=== PATIENT | male | born 1990 | race Caucasian/White ===

== ENCOUNTER 2017-10-22 21:17 | Inpatient (IN) | payer MEDICAID, OTHER ==
[~2017-10-22] VITALS: Ht 177.8 cm; Wt 107.4 kg
[2017-10-22] MEDS ORDERED: SODIUM CHLORIDE 0.9% FLUSH 10 ML FLUSH IV FLUSH PRN (23:00)
[2017-10-22] MEDS ORDERED: NALOXONE HCL 0.4 MG/ML AMP IV PUSH PRN (23:00)
[2017-10-23 02:10] VITALS: BP 129/66; PULSE 60; RESP 17; TEMP 96.1; O2SAT 96
[2017-10-23] MEDS ORDERED: PROCHLORPERAZINE INJ 10 MG/2 ML VIAL IV PUSH PRN (02:15)
[2017-10-23] MEDS: ONDANSETRON HCL 4 MG/2 ML VIAL IVP PRN (02:27)
[2017-10-23] MEDS: HYDROmorphone HCL PF 2 MG/ML VIAL IV PRN ×5 (02:55→23:38)
--- NOTE | 2017-10-23 03:02 | HHI.HP ---
[facility] Unknown Admission Diagnosis Ileocolic Intussusception with partial SBO . Diagnoses: (1) Ileocolic intussusception (2) Partial small bowel obstruction Chief Complaint: Abdominal pain Travel History International Travel<30 Days: No Contact w/Intl Traveler <30 Da: No History of Present Illness Mr. Crawley is a 27 year-old male with a history of pancreatitis who presented to the ER on 10/22/17 in [place] complaining of severe abdominal pain. Abdominal/Pelvic CT scan showed ileocolic intussusception with partial SBO. The patient was transferred to [facility] for surgical intervention. The patient is seen in his hospital room. He reports that his symptoms first started after breakfast this morning with intermittent abdominal pain - left upper quadrant - and the symptoms progressed throughout the day until they became severe and constant and were accompanied by severe nausea and vomiting. Pain temporarily relieved with IV Dilaudid. Review of Systems Except as stated in HPI: all other systems reviewed are Neg Past Family Social History Past Medical History Pancreatitis . Past Surgical History Right hand surgery . Reported Medications Reported Meds & Active Scripts Active Active Prescriptions or Reported Medications Unobtainable . Allergies: Coded Allergies: pseudoephedrine (Verified Allergy, Severe, Rash, 10/22/17) Active Ordered Medications Current Medications Ondansetron HCl (Zofran Inj) 4 mg Q6H PRN IVP NAUSEA OR VOMITING Last administered on 10/23/17at 02:27; Start 10/22/17 at 23:00 Hydromorphone HCl (Dilaudid Pf Inj) 1 mg Q3H PRN IV PAIN > 4 Last administered on 10/23/17at 02:55; Start 10/23/17 at 02:45 Potassium Chloride/Sodium Chloride 1,000 ml @ 125 mls/hr Q8H IV ; Start at 02:15 Prochlorperazine Edisylate (Compazine Inj) 10 mg Q6H PRN IV PUSH severe nausea/ vomiting; Start 10/23/17 at 02:15 . Family History Denies any family history of cancer, diabetes, heart disease . Social History Tobacco: denies ever smoking ETOH: occasional social use Illicit Drugs: denies . Physical Exam Vital Signs Vital Signs Date Time Temp Pulse Resp B/P (MAP) Pulse Ox O2 Delivery O2 Flow Rate FiO2 10/23/17 01:27 68 14 130/61 (84) 98 10/22/17 23:00 Room Air 10/22/17 19:03 2.00 10/22/17 18:39 97.7 . Physical Exam GENERAL: This is a well-nourished, well-developed patient, in pain. SKIN: No rashes, ecchymoses or lesions. Cool and dry. HEAD: Atraumatic. Normocephalic. No temporal or scalp tenderness. EYES: No scleral icterus. No injection or drainage. ENT: Nose without bleeding, purulent drainage. NECK: Trachea midline. No JVD. CARDIOVASCULAR: Regular rate and rhythm without murmurs, gallops, or rubs. RESPIRATORY: Clear to auscultation. Breath sounds equal bilaterally. No wheezes , rales, or rhonchi. GASTROINTESTINAL: Abdomen soft with left upper quadrant tenderness. No guarding or rebound. MUSCULOSKELETAL: Extremities without clubbing, cyanosis, or edema. NEUROLOGICAL: Awake and alert. Motor and sensory grossly within normal limits. Normal speech. . Laboratory Laboratory Tests Test 10/22/17 18:47 10/22/17 21:52 White Blood Count 17.4 TH/MM3 Red Blood Count 4.71 MIL/MM3 Hemoglobin 14.4 GM/DL Hematocrit 40.5 % Mean Corpuscular Volume 86.0 FL Mean Corpuscular Hemoglobin 30.6 PG Mean Corpuscular Hemoglobin Concent 35.6 % Red Cell Distribution Width 11.7 % Platelet Count 323 TH/MM3 Mean Platelet Volume 10.4 FL Immature Granulocyte % (Auto) 0.5 % Neutrophils (%) (Auto) 73.0 % Lymphocytes (%) (Auto) 18.3 % Monocytes (%) (Auto) 7.3 % Eosinophils (%) (Auto) 0.7 % Basophils (%) (Auto) 0.2 % Immature Granulocyte # (Auto) 0.1 TH/MM3 Neutrophils # (Auto) 12.7 TH/MM3 Lymphocytes # (Auto) 3.2 TH/MM3 Monocytes # (Auto) 1.3 TH/MM3 Eosinophils # (Auto) 0.1 TH/MM3 Basophils # (Auto) 0.0 TH/MM3 CBC Comment DIFF FINAL Differential Comment Blood Urea Nitrogen 16 MG/DL Creatinine 1.00 MG/DL Random Glucose 121 MG/DL Total Protein 8.3 GM/DL Albumin 4.3 GM/DL Calcium Level 9.3 MG/DL Alkaline Phosphatase 85 U/L Aspartate Amino Transf (AST/SGOT) 22 U/L Alanine Aminotransferase (ALT/SGPT) 31 U/L Total Bilirubin 0.6 MG/DL Sodium Level 140 MEQ/L Potassium Level 3.0 MEQ/L Chloride Level 106 MEQ/L Carbon Dioxide Level 22.0 MEQ/L Anion Gap 12 MEQ/L Estimat Glomerular Filtration Rate 90 ML/MIN Lipase 142 U/L 122 U/L . Imaging Last Impressions Abdomen/Pelvis CT 10/22/17 2394 Signed Impressions: Service Date/Time: Sunday, October 22, 2017 19:48 - CONCLUSION: Ileocolic intussusception and I believe related to a mass. There is associated short segment, low grade/partial obstruction. George Donovan MD . Caprini VTE Risk Assessment Caprini VTE Risk Assessment: Mod/High Risk (score >= 2) Caprini Risk Assessment Model Point Value = 1 Point Value = 2 Point Value = 3 Point Value = 5 Age 41-60 Minor surgery BMI > 25 kg/m2 Swollen legs Varicose veins or History of unexplained or recurrent spontaneous Oral contraceptives or hormone replacement Sepsis (< 1 month) Serious lung disease, including pneumonia (< 1 month) Abnormal pulmonary function Acute myocardial infarction Congestive heart failure (< 1 month) History of inflammatory bowel disease Medical patient at bed rest Age 61-74 Arthroscopic surgery Major open surgery (> 45 min) Laparoscopic surgery (> 45 min) Malignancy Confined to bed (> 72 hours) Immobilizing plaster cast Central venous access Age >= 75 History of VTE Family history of VTE Factor V Leiden Prothrombin [id number] Lupus anticoagulant Anticardiolipin antibodies Elevated serum homocysteine Heparin-induced thrombocytopenia Other congenital or acquired thrombophilia Stroke (< 1 month) Elective arthroplasty Hip, pelvis, or leg fracture Acute spinal cord injury (< 1 month) Prophylaxis Regimen Total Risk Factor Score Risk Level Prophylaxis Regimen 0-1 Low Early ambulation 2 Moderate Order ONE of the following: *Sequential Compression Device (SCD) *Heparin 5000 units SQ BID 3-4 Higher Order ONE of the following medications: *Heparin 5000 units SQ TID *Enoxaparin/Lovenox 40 mg SQ daily (WT < 150 kg, CrCl > 30 mL/min) *Enoxaparin/Lovenox 30 mg SQ daily (WT < 150 kg, CrCl > 10-29 mL/min) *Enoxaparin/Lovenox 30 mg SQ BID (WT < 150 kg, CrCl > 30 mL/min) AND/OR *Sequential Compression Device (SCD) 5 or more Highest Order ONE of the following medications: *Heparin 5000 units SQ TID (Preferred with Epidurals) *Enoxaparin/Lovenox 40 mg SQ daily (WT < 150 kg, CrCl > 30 mL/min) *Enoxaparin/Lovenox 30 mg SQ daily (WT < 150 kg, CrCl > 10-29 mL/min) *Enoxaparin/Lovenox 30 mg SQ BID (WT < 150 kg, CrCl > 30 mL/min) AND *Sequential Compression Device (SCD) Assessment and Plan Problem List: (1) Ileocolic intussusception ICD Code: K56.1 - Intussusception (2) Partial small bowel obstruction ICD Code: K56.600 - Partial intestinal obstruction, unspecified as to cause Assessment and Plan Mr. Crawley is a 27 year-old male with a history of pancreatitis who presented to the ER on 10/22/17 in [place] complaining of severe abdominal pain. Abdominal/Pelvic CT scan showed ileocolic intussusception with partial SBO. The patient was transferred to [facility] for surgical intervention. Ileocolic Intussusception Partial SBO - NPO - Analgesia - IV Dilaudid 1 mg q3h PRN pain - Antiemetics - IV Zofran and Compazine PRN - IVF hydration with NS + 40 meq of K+ at 125 cc/hr - General surgery consulted - Monitor VS q4h Hypokalemia - Potassium 3.0 on admission - being replaced IV - recheck labs in a.m. and replace as needed Leukocytosis - WBC 17.4 with neutrophilia - Empiric Antibiotics: Zosyn 3.375 mg IV q6h - Recheck labs in a.m. and follow results DVT prophylaxis - SCDs/TEDs - surgery pending . Discussed Condition With Patient, patient's , charge nurse, and Dr. Sanders Physician Certification 2 Midnight Certification Type: Admission for Inpatient Services Order for Inpatient Services The services are ordered in accordance with Medicare regulations or non- Medicare payer requirements, as applicable. In the case of services not specified as inpatient-only, they are appropriately provided as inpatient services in accordance with the 2-midnight benchmark. Estimated LOS (days): 5 days is the estimated time the patient will need to remain in the hospital, assuming treatment plan goals are met and no additional complications. Post-Hospital Plan: Home Aimee Colon Oct 23, 2017 03:02
[2017-10-23] MEDS ORDERED: LACTATED RINGER'S 1000 ML IV PRN (03:45)
[2017-10-23] MEDS ORDERED: POVIDONE IODINE 5% (ANTISEPSIS KIT) 4 APPLICATIONS EACH NARE PRN (03:45)
[2017-10-23] MEDS ORDERED: CHLORHEXIDINE GLUCONATE 2 % 1 PACK (2 CLOTHS) TOPICAL PRN (03:45)
[2017-10-23] MEDS: PIPERACIL-TAZO 3.375 GM PREMIX 50 ML IV SCH ×4 (04:46→22:30)
[2017-10-23] MEDS: NS + KCL 40 MEQ INJ 1,000 ML IV SCH ×4 (04:47→23:39)
[2017-10-23] MEDS ORDERED: ACETAMINOPHEN 1000 MG/100 ML 100 ML IV ONE (06:16)
[2017-10-23] MEDS ORDERED: BUPIVACAINE/EPINEPHRINE 0.25% 50 ML VIAL ONE (07:14)
[2017-10-23] MEDS ORDERED: METRONIDAZOLE 500 MG IV ONE (07:14)
[2017-10-23] MEDS ORDERED: ceFAZolin 2 GM PREMIX 0 ML ONE (07:14)
[2017-10-23] MEDS ORDERED: HYDROmorphone HCL PF 2 MG/ML VIAL ONE (08:46)
[2017-10-23] MEDS: SODIUM CHLORIDE 0.9% FLUSH 10 ML FLUSH IV FLUSH SCH ×2 (09:00→23:38)
[2017-10-23] MEDS ORDERED: DO NOT ADM ANY ANTICOAGULANT DRUGS PRN (11:20)
--- NOTE | 2017-10-23 11:21 | HHI.PR ---
Immediate Post Op Note Procedure Date: Oct 23, 2017 Pre Op Diagnosis: intussuception, colonic mass, bowel obstruction Post Op Diagnosis: same Surgeon: Butch Quesada MD [employer]ite Worker(s): merary Procedure: dx lap, lap take down of hepatic flexure, lap right ileocectomy Findings: intussuception, colonic mass lead point, dilated small bowel loops Complications: none Specimen(s) removed: right colon Anesthesia: General Drains: HANNAH Patient to: PACU Patient Condition: Good Butch Quesada MD Oct 23, 2017 11:21
[2017-10-23] MEDS ORDERED: MIDAZOLAM HCL 2 MG/2 ML VIAL ONE (11:23)
[2017-10-23 12:45] VITALS: BP 136/71; PULSE 101; RESP 18; TEMP 97.6; O2SAT 95
--- NOTE | 2017-10-23 13:16 | HHI.PR ---
Subjective Remarks This is a pleasant 27 y/o Male with history of pancreatitis who came to ER at [facility] complaining of severe abdominal pain. Abdominal/Pelvic CT scan showed ileocolic intussusception with partial SBO. With diagnosis of Intussusception, Colonic mass, Bowel obstruction, status post Diagnostic laparoscopic take down of hepatic flexure, right iliocectomy with primary anastomosis. was removed Right Colon and sent for Pathology. stable in his bedroom with his and relatives. Objective Vital Signs Date Time Temp Pulse Resp B/P (MAP) Pulse Ox O2 Delivery O2 Flow Rate FiO2 10/23/17 12:45 97.6 101 18 136/71 (92) 95 10/23/17 12:30 97.8 92 16 125/58 (80) 96 Room Air 10/23/17 12:15 91 16 124/60 (81) 95 Room Air 10/23/17 12:00 93 15 129/66 (87) 100 Nasal Cannula 2 10/23/17 11:45 91 15 131/68 (89) 100 Nasal Cannula 3 10/23/17 11:30 93 15 139/67 (91) 97 Nasal Cannula 3 10/23/17 11:15 98.8 100 20 137/66 (89) 100 Simple Mask 8 10/23/17 02:10 96.1 60 17 129/66 (87) 96 I/O 10/22/17 10/22/17 10/22/17 10/23/17 10/23/17 10/23/17 07:00 15:00 23:00 07:00 15:00 23:00 Intake Total 0 ml 1600 ml Output Total 0 ml 810 ml Balance 0 ml 790 ml Intake Oral 0 ml IV Total 1600 ml Output Urine Total 0 ml 750 ml Drainage Total 10 ml Estimated Blood Loss 50 ml # Bowel Movements 0 Imaging No new imaging studies. Procedures s/p right iliocectomy with primary anastomosis Objective Remarks GENERAL: This is a well-nourished, well-developed patient, in pain. SKIN: No rashes, ecchymoses or lesions. Cool and dry. HEAD: Atraumatic. Normocephalic. No temporal or scalp tenderness. EYES: No scleral icterus. No injection or drainage. ENT: Nose without bleeding, purulent drainage. NECK: Trachea midline. No JVD. CARDIOVASCULAR: Regular rate and rhythm without murmurs, gallops, or rubs. RESPIRATORY: Clear to auscultation. Breath sounds equal bilaterally. No wheezes , rales, or rhonchi. GASTROINTESTINAL: Abdomen soft with left upper quadrant tenderness. No guarding or rebound. MUSCULOSKELETAL: Extremities without clubbing, cyanosis, or edema. NEUROLOGICAL: Awake and alert. Motor and sensory grossly within normal limits. Normal speech. Medications and IVs Current Medications Medications (Trade) Dose Ordered Sig/Svetlana Route Start Time Stop Time Status Last Admin (NS Flush) 2 ml UNSCH PRN IV FLUSH 10/22/17 23:00 (NS Flush) 2 ml BID IV FLUSH 10/23/17 09:00 (Zofran Inj) 4 mg Q6H PRN IVP 10/22/17 23:00 10/23/17 02:27 (Narcan Inj) 0.4 mg UNSCH PRN IV PUSH 10/22/17 23:00 (Dilaudid Pf Inj) 1 mg Q3H PRN IV 10/23/17 02:45 10/23/17 05:53 Potassium Chloride/Sodium Chloride 1,000 ml @ 125 mls/hr Q8H IV 10/23/17 02:15 10/23/17 04:47 (Compazine Inj) 10 mg Q6H PRN IV PUSH 10/23/17 02:15 Piperacillin Sod/ Tazobactam Sod 50 ml @ 100 mls/hr Q6H IV 10/23/17 04:00 10/23/17 10:50 Lactated Ringer's 1,000 ml @ 30 mls/hr Q24H PRN IV 10/23/17 03:45 10/26/17 03:44 (Betadine 5% Antisepsis Kit) 1 applic ASSISTANT SPA MANAGER PRN EACH NARE 10/23/17 03:45 10/26/17 03:44 (Chlorhexidine 2% Cloth) 3 pack ASSISTANT SPA MANAGER PRN TOPICAL 10/23/17 03:45 10/26/17 03:44 Miscellaneous Information ALL NURSING DEPARTME... UNSCH PRN .XX 10/23/17 11:20 10/24/17 11:19 A/P Assessment and Plan (1) Ileocolic intussusception ICD Code: K56.1 - Intussusception (2) Partial small bowel obstruction ICD Code: K56.600 - Partial intestinal obstruction, unspecified as to cause Ileocolic Intussusception Partial SBO, on Pain medicine, IV hydration, s/p right iliocectomy with primary anastomosis Hypokalemia - Potassium 3.0 on admission - being replaced IV - recheck labs in a.m. and replace as needed Leukocytosis - WBC 17.4 with neutrophilia - Empiric Antibiotics: Zosyn 3.375 mg IV q6h - Recheck labs in a.m. and follow results DVT prophylaxis - SCDs/TEDs - surgery pending . Discussed Condition With Patient, nurse and relatives. Discharge Planning once cleared by General Surgery Christian Tracy MD Oct 23, 2017 13:16
[2017-10-23 15:20] LABS: AUTOMATED NEUTROPHIL # 18.8 TH/MM3 (1.8-7.7); BASOPHIL % 0.1 % (0.0-2.0); HEMATOCRIT 41.5 % (39.0-51.0); HEMOGLOBIN 14.3 GM/DL (13.0-17.0); LYMPH % 2.8 % (9.0-44.0); LYMPHOCYTE # 0.6 TH/MM3 (1.0-4.8); MEAN CELL VOLUME 88.3 FL (80.0-100.0); MEAN CORPUSCULAR HEMOGLOBIN 30.4 PG (27.0-34.0); MEAN CORPUSCULAR HGB CONC 34.5 % (32.0-36.0); MEAN PLATELET VOLUME 8.6 FL (7.0-11.0); MONO % 10.2 % (0.0-8.0); MONOCYTE # 2.2 TH/MM3 (0-0.9); NEUT % 86.9 % (16.0-70.0); PLATELET COUNT 268 TH/MM3 (150-450); RED CELL DISTRIBUTION WIDTH 12.7 % (11.6-17.2); WHITE BLOOD COUNT 21.7 TH/MM3 (4.0-11.0)
[2017-10-23 15:39] LABS: ALBUMIN 3.7 GM/DL (3.4-5.0); ALT (GPT) 24 U/L (12-78); AST (GOT) 15 U/L (15-37); BICARBONATE 26.9 MEQ/L (21.0-32.0); BLOOD UREA NITROGEN 13 MG/DL (7-18); CALCIUM 8.2 MG/DL (8.5-10.1); CHLORIDE 104 MEQ/L (98-107); CREATININE 1.08 MG/DL (0.60-1.30); GLOMERULAR FILTRATION RATE 83 ML/MIN (>89); GLUCOSE,RANDOM 109 MG/DL (74-106); SODIUM (NA) 139 MEQ/L (136-145)
[2017-10-23 15:41] LABS: ALKALINE PHOSPHATASE 83 U/L (45-117); TOTAL BILIRUBIN ADULT 0.6 MG/DL (0.2-1.0); TOTAL PROTEIN 7.8 GM/DL (6.4-8.2)
[2017-10-23 16:00] VITALS: BP 116/55; PULSE 106; RESP 18; TEMP 97.5; O2SAT 97
[2017-10-23 16:24] LABS: BANDS 3 % (0-6); LYMPHOCYTES 2 % (9-44); MONOCYTES 11 % (0-8); NEUTROPHIL # MANUAL DIFF 18.9 TH/MM3 (1.8-7.7); POLYS (SEG NEUTROPHILS) 84 % (16-70)
[2017-10-23 16:25] LABS: DOHLE BODIES PRESENT (NONE SEEN); TOXIC GRANULATION 1+ (NORMAL)
[2017-10-24] MEDS: HYDROmorphone HCL PF 2 MG/ML VIAL IV PRN (04:43)
[2017-10-24] MEDS: PIPERACIL-TAZO 3.375 GM PREMIX 50 ML IV SCH ×4 (04:48→21:35)
[2017-10-24 05:47] LABS: AUTOMATED NEUTROPHIL # 9.6 TH/MM3 (1.8-7.7); BASOPHIL % 0.2 % (0.0-2.0); HEMATOCRIT 40.5 % (39.0-51.0); HEMOGLOBIN 14.3 GM/DL (13.0-17.0); LYMPH % 11.7 % (9.0-44.0); LYMPHOCYTE # 1.5 TH/MM3 (1.0-4.8); MEAN CELL VOLUME 88.5 FL (80.0-100.0); MEAN CORPUSCULAR HEMOGLOBIN 31.2 PG (27.0-34.0); MEAN CORPUSCULAR HGB CONC 35.2 % (32.0-36.0); MEAN PLATELET VOLUME 8.8 FL (7.0-11.0); MONO % 12.1 % (0.0-8.0); MONOCYTE # 1.5 TH/MM3 (0-0.9); PLATELET COUNT 264 TH/MM3 (150-450); RED BLOOD COUNT 4.57 MIL/MM3 (4.50-5.90); RED CELL DISTRIBUTION WIDTH 12.7 % (11.6-17.2); WHITE BLOOD COUNT 12.6 TH/MM3 (4.0-11.0)
[2017-10-24 06:40] LABS: ALBUMIN 3.6 GM/DL (3.4-5.0); AST (GOT) 17 U/L (15-37); BICARBONATE 25.6 MEQ/L (21.0-32.0); BLOOD UREA NITROGEN 13 MG/DL (7-18); CALCIUM 8.2 MG/DL (8.5-10.1); CHLORIDE 105 MEQ/L (98-107); CREATININE 0.94 MG/DL (0.60-1.30); GLOMERULAR FILTRATION RATE 97 ML/MIN (>89); GLUCOSE,RANDOM 98 MG/DL (74-106); MAGNESIUM 1.9 MG/DL (1.5-2.5); SODIUM (NA) 138 MEQ/L (136-145)
[2017-10-24 06:43] LABS: ALKALINE PHOSPHATASE 72 U/L (45-117); ALT (GPT) 22 U/L (12-78); TOTAL BILIRUBIN ADULT 0.8 MG/DL (0.2-1.0); TOTAL PROTEIN 7.7 GM/DL (6.4-8.2)
[2017-10-24 08:00] VITALS: BP 125/64; PULSE 93; RESP 18; TEMP 98.7; O2SAT 97
[2017-10-24] MEDS: ONDANSETRON HCL 4 MG/2 ML VIAL IVP PRN ×2 (08:21→17:59)
[2017-10-24] MEDS: SODIUM CHLORIDE 0.9% FLUSH 10 ML FLUSH IV FLUSH SCH ×2 (08:22→21:00)
[2017-10-24] MEDS ORDERED: METOCLOPRAMIDE HCL 10 MG/2 ML VIAL IM SCH (10:00)
--- NOTE | 2017-10-24 10:10 | HHI.PR ---
Subjective Subjective Notes vomited x 1 this am, pain controlled, no bowel fxn Objective Vitals/I&O Vital Signs Date Time Temp Pulse Resp B/P (MAP) Pulse Ox O2 Delivery O2 Flow Rate FiO2 10/24/17 08:02 16 10/24/17 08:00 98.7 93 125/64 (84) 97 10/23/17 12:30 Room Air 10/23/17 12:00 2 Labs Laboratory Tests Test 10/23/17 14:07 10/24/17 04:40 White Blood Count 21.7 12.6 Red Blood Count 4.70 4.57 Hemoglobin 14.3 14.3 Hematocrit 41.5 40.5 Mean Corpuscular Volume 88.3 88.5 Mean Corpuscular Hemoglobin 30.4 31.2 Mean Corpuscular Hemoglobin Concent 34.5 35.2 Red Cell Distribution Width 12.7 12.7 Platelet Count 268 264 Mean Platelet Volume 8.6 8.8 Neutrophils (%) (Auto) 86.9 76.0 Lymphocytes (%) (Auto) 2.8 11.7 Monocytes (%) (Auto) 10.2 12.1 Eosinophils (%) (Auto) 0.0 0.0 Basophils (%) (Auto) 0.1 0.2 Neutrophils # (Auto) 18.8 9.6 Lymphocytes # (Auto) 0.6 1.5 Monocytes # (Auto) 2.2 1.5 Eosinophils # (Auto) 0.0 0.0 Basophils # (Auto) 0.0 0.0 CBC Comment AUTO DIFF DIFF FINAL Differential Total Cells Counted 100 Neutrophils % (Manual) 84 Band Neutrophils % 3 Lymphocytes % 2 Monocytes % 11 Neutrophils # (Manual) 18.9 Differential Comment FINAL DIFF MANUAL Toxic Granulation 1+ Dohle Bodies PRESENT Platelet Estimate NORMAL Platelet Morphology Comment NORMAL Red Cell Morphology Comment NORMAL Blood Urea Nitrogen 13 13 Creatinine 1.08 0.94 Random Glucose 109 98 Total Protein 7.8 7.7 Albumin 3.7 3.6 Calcium Level 8.2 8.2 Alkaline Phosphatase 83 72 Aspartate Amino Transf (AST/SGOT) 15 17 Alanine Aminotransferase (ALT/SGPT) 24 22 Total Bilirubin 0.6 0.8 Sodium Level 139 138 Potassium Level 3.7 3.8 Chloride Level 104 105 Carbon Dioxide Level 26.9 25.6 Anion Gap 8 7 Estimat Glomerular Filtration Rate 83 97 Magnesium Level 1.9 Abdomen: Other (incision c/d/i eb serosang) A/P Assessment and Plan s/p right iliocectomy with primary anastomosis PLAN npo ok for ice chips and po meds zofran/reglan oob dvt ppx eb sxn await path results discussed with pt and mother at bedside Butch Quesada MD Oct 24, 2017 10:10
[2017-10-24] MEDS: KETOROLAC TROMETHAMINE 30 MG/ML (IVP) VIAL IV PUSH SCH ×2 (10:20→17:59)
[2017-10-24] MEDS: NS + KCL 40 MEQ INJ 1,000 ML IV SCH ×2 (10:21→18:00)
[2017-10-24 12:00] VITALS: BP 151/74; PULSE 111; RESP 18; TEMP 100.1; O2SAT 97
[2017-10-24 12:32] VITALS: BP 127/67; PULSE 98; RESP 17; TEMP 99.1; O2SAT 97
[2017-10-24 16:00] VITALS: BP 119/70; PULSE 117; RESP 18; TEMP 99.2; O2SAT 93
--- NOTE | 2017-10-24 18:33 | HHI.PR ---
Subjective Remarks This is a pleasant 27 y/o Male with history of pancreatitis who came to ER at [place] complaining of severe abdominal pain. Abdominal/Pelvic CT scan showed ileocolic intussusception with partial SBO. With diagnosis of Intussusception, Colonic mass, Bowel obstruction, status post Diagnostic laparoscopic take down of hepatic flexure, right iliocectomy with primary anastomosis. was removed Right Colon and sent for Pathology. stable in his bedroom with his and relatives. General Surgery following, NPO, awaiting for pathology results. Objective Vital Signs Date Time Temp Pulse Resp B/P (MAP) Pulse Ox O2 Delivery O2 Flow Rate FiO2 10/24/17 16:00 99.2 117 18 119/70 (86) 93 10/24/17 12:32 99.1 98 17 127/67 (87) 97 10/24/17 12:00 100.1 111 18 151/74 (99) 97 10/24/17 11:20 17 10/24/17 08:02 16 10/24/17 08:00 98.7 93 18 125/64 (84) 97 I/O 10/23/17 10/23/17 10/23/17 10/24/17 10/24/17 10/24/17 06:59 14:59 22:59 06:59 14:59 22:59 Intake Total 0 ml 1600 ml 0 ml Output Total 0 ml 810 ml 20 ml 90 ml 650 ml Balance 0 ml 790 ml -20 ml -90 ml -650 ml Intake Oral 0 ml 0 ml IV Total 1600 ml Output Urine Total 0 ml 750 ml 550 ml Drainage Total 10 ml 20 ml 90 ml 100 ml Estimated Blood Loss 50 ml # Bowel Movements 0 Result Diagram: 10/24/17 0440 10/24/17 0440 Imaging No new imaging studies. Procedures s/p right iliocectomy with primary anastomosis Other Results Laboratory Tests Test 10/23/17 14:07 10/24/17 04:40 Differential Total Cells Counted 100 Neutrophils % (Manual) 84 % Band Neutrophils % 3 % Lymphocytes % 2 % Monocytes % 11 % Neutrophils # (Manual) 18.9 TH/MM3 Toxic Granulation 1+ Dohle Bodies PRESENT Platelet Estimate NORMAL Platelet Morphology Comment NORMAL Red Cell Morphology Comment NORMAL White Blood Count 12.6 TH/MM3 Red Blood Count 4.57 MIL/MM3 Hemoglobin 14.3 GM/DL Hematocrit 40.5 % Mean Corpuscular Volume 88.5 FL Mean Corpuscular Hemoglobin 31.2 PG Mean Corpuscular Hemoglobin Concent 35.2 % Red Cell Distribution Width 12.7 % Platelet Count 264 TH/MM3 Mean Platelet Volume 8.8 FL Neutrophils (%) (Auto) 76.0 % Lymphocytes (%) (Auto) 11.7 % Monocytes (%) (Auto) 12.1 % Eosinophils (%) (Auto) 0.0 % Basophils (%) (Auto) 0.2 % Neutrophils # (Auto) 9.6 TH/MM3 Lymphocytes # (Auto) 1.5 TH/MM3 Monocytes # (Auto) 1.5 TH/MM3 Eosinophils # (Auto) 0.0 TH/MM3 Basophils # (Auto) 0.0 TH/MM3 CBC Comment DIFF FINAL Differential Comment Blood Urea Nitrogen 13 MG/DL Creatinine 0.94 MG/DL Random Glucose 98 MG/DL Total Protein 7.7 GM/DL Albumin 3.6 GM/DL Calcium Level 8.2 MG/DL Magnesium Level 1.9 MG/DL Alkaline Phosphatase 72 U/L Aspartate Amino Transf (AST/SGOT) 17 U/L Alanine Aminotransferase (ALT/SGPT) 22 U/L Total Bilirubin 0.8 MG/DL Sodium Level 138 MEQ/L Potassium Level 3.8 MEQ/L Chloride Level 105 MEQ/L Carbon Dioxide Level 25.6 MEQ/L Anion Gap 7 MEQ/L Estimat Glomerular Filtration Rate 97 ML/MIN Objective Remarks GENERAL:Obese patient in no acute distress. SKIN: No rashes, ecchymoses or lesions. Cool and dry. HEAD: Atraumatic. Normocephalic. No temporal or scalp tenderness. EYES: No scleral icterus. No injection or drainage. ENT: Nose without bleeding, purulent drainage. NECK: Trachea midline. No JVD. CARDIOVASCULAR: Regular rate and rhythm without murmurs, gallops, or rubs. RESPIRATORY: Clear to auscultation. Breath sounds equal bilaterally. No wheezes , rales, or rhonchi. GASTROINTESTINAL: Dressed surgical wounds. MUSCULOSKELETAL: Extremities without clubbing, cyanosis, or edema. NEUROLOGICAL: Awake and alert. Motor and sensory grossly within normal limits. Normal speech. Medications and IVs Current Medications Medications (Trade) Dose Ordered Sig/Svetlana Route Start Time Stop Time Status Last Admin (NS Flush) 2 ml UNSCH PRN IV FLUSH 10/22/17 23:00 (NS Flush) 2 ml BID IV FLUSH 10/23/17 09:00 10/23/17 23:38 (Zofran Inj) 4 mg Q6H PRN IVP 10/22/17 23:00 10/24/17 17:59 (Narcan Inj) 0.4 mg UNSCH PRN IV PUSH 10/22/17 23:00 Potassium Chloride/Sodium Chloride 1,000 ml @ 125 mls/hr Q8H IV 10/23/17 02:15 10/24/17 18:00 (Compazine Inj) 10 mg Q6H PRN IV PUSH 10/23/17 02:15 Piperacillin Sod/ Tazobactam Sod 50 ml @ 100 mls/hr Q6H IV 10/23/17 04:00 10/24/17 16:06 Lactated Ringer's 1,000 ml @ 30 mls/hr Q24H PRN IV 10/23/17 03:45 10/26/17 03:44 (Betadine 5% Antisepsis Kit) 1 applic SAND OPERATOR PRN EACH NARE 10/23/17 03:45 10/26/17 03:44 (Chlorhexidine 2% Cloth) 3 pack SAND OPERATOR PRN TOPICAL 10/23/17 03:45 10/26/17 03:44 (Toradol Inj) 30 mg Q6HR IV PUSH 10/24/17 12:00 10/24/17 17:59 (Reglan Inj) 10 mg Q8HR IV PUSH 10/24/17 22:00 A/P Assessment and Plan (1) Ileocolic intussusception ICD Code: K56.1 - Intussusception (2) Partial small bowel obstruction ICD Code: K56.600 - Partial intestinal obstruction, unspecified as to cause Ileocolic Intussusception Partial SBO, on Pain medicine, IV hydration, s/p right iliocectomy with primary anastomosis to continue NPO by General forestry extension specialist, encourage ambulation, awaiting results of Pathology, continue empiric antibiotics Zosyn 3.375 grams every 6 hours. DVT prophylaxis - SCDs/TEDs - surgery pending . Discussed Condition With Patient, nurse and relatives. Discharge Planning once cleared by General Surgery Christian Tracy MD Oct 24, 2017 18:32
[2017-10-24 20:10] VITALS: BP 117/62; PULSE 82; RESP 18; TEMP 98.9; O2SAT 97
[2017-10-24] MEDS: METOCLOPRAMIDE HCL 10 MG/2 ML VIAL IV PUSH SCH (21:35)
--- NOTE | 2017-10-24 22:06 | MP ---
cc: CARINA QUESADA MD DATE OF SURGERY: 10/23/2017 PREOPERATIVE DIAGNOSIS: Intussusception, colonic mass, bowel obstruction. POSTOPERATIVE DIAGNOSIS Intussusception, colonic mass, bowel obstruction. PROCEDURE PERFORMED 1. Diagnostic laparoscopy. 2. Laparoscopic takedown of hepatic flexure. 3. Laparoscopically right ileocecectomy with primary anastomosis. SURGEON Dr. Carina Quesada. TANK INSPECTOR: Pamela ALEXANDRE. IV FLUIDS See anesthesia sheet. ESTIMATED BLOOD LOSS: 20 cc. DRAINS: 10 Bulgarian HANNAH drain. FINDINGS: Large intussusception at ileocecal valve, colonic mass, appeared to be lead point, multiple dilated small bowel loops. COMPLICATIONS: None. SPECIMEN: Right colon ileal cecectomy. WOUND CLASSIFICATION Clean, contaminated. INDICATIONS: The patient is a 27-year-old male who presented with acute onset of nausea, vomiting, abdominal pain. The patient had no weight loss, no significant medical history other than acute pancreatitis and no family history of cancer, noted to have a mass in the right lower quadrant at the ileocecal valve causing intussusception. The patient also distended with partial obstruction. Decision was made for operative intervention. Discussed with the patient in detail. DETAILS OF PROCEDURE: The patient was taken to the operating room suite, placed in supine position. He was prepped and draped in the usual sterile fashion after induction of general endotracheal anesthesia. Brief time-out done stating correct patient, procedure and surgical site, and all were in agreement with this. Attention first directed to the umbilicus just superior where local anesthetic was injected. A small stab dayron incision was made with an 11-blade. The Visiport 5-mm scope was entered safely into the abdomen. The abdomen insufflated to 50 mm pneumoperitoneum. Three other ports placed. One left lower quadrant port followed by a 12 mm left mid quadrant port and then a 5 mm right upper quadrant port. The patient placed in Trendelenburg airplaned to the left. The right lower quadrant was identified. There was noted to be multiple small bowel loops with dilation. The terminal ileum was noted to be dilated with intussusception of the terminal ileum for a pretty significant segment. The lateral attachments were taken down to the right colon to further mobilize the colon. The peritoneum mesentery was scored on the medial side, identifying the vascular structures. A small window was made first in the terminal ileum, cleaned, viable, placed away from the intussusception. Intussusception was attempted to be reduced gently. This was not feasible. Therefore, decision was made to commit for ileocecectomy. A window was made at the terminal ileum and a blue load Endo-SHANTAL stapler was used to transect the ileum proximal to the ileocecal valve. Harmonic scalpel used to transect the base of the mesoappendix. There was noted to be some dilated lymph nodes, however, these did not look overly matted. The Harmonic was traced up from the right colon. The vessels were identified and ligated. The distal ascending colon, again the mesentery was taken down to this. In order to facilitate more mobilization of the colon, the hepatic flexure was mobilized further. The colon was transected with two green load Endo-SHANTAL staplers after clearing from the mesentery, adequately transecting this portion of the colon. This portion of the colon was somewhat dilated pretty significantly. Next the specimen was placed to the side and colonic enteric anastomosis was done. Stay suture of 2-0 Polysorb was placed. The Harmonic was used to create enterotomies in both the colonic segment and the small bowel. The Endo-SHANTAL blue load stapler was used to create a yovchku-vbm-ylpufxe layer anastomosis. Three stay sutures were placed to approximate the common enterotomy. A blue load Endo-SHANTAL stapler was used to create this finalization and anastomosis. Suture of 2-0 Polysorb was placed at the crotch in order to assist in approximation. The mesenteric defect was approximated. The anastomosis noted to be freely patent and looked very viable. Next, suction irrigation used. A drain was placed through the right upper quadrant port site on the right colic gutter near the anastomosis. The bowel was noted to be anatomic and once we were finished with this, the small bowel was examined without evidence of abnormality. The colon was also visualized with again no evidence of abnormality other than what was noted with the intussusception. Next the colon segment was grasped and a large EndoCatch bag was used to place the specimen inside this. The left mid quadrant incision was extended both proximally and distally with electro Bovie cautery in order to facilitate removal of the specimen. On examination of the specimen on the back table, noted to be a palpable mass, and again a relatively large segment of intussusception with questionable viability on examination on the back table. This was sent for pathology. The left mid quadrant incision was reapproximated to the anterior fascia with #1 running Prolene. This was closed in layers with 3-0 Vicryl, 4-0 Monocryl and sterile dressings were placed including Mastisol and Steri-Strips. The ports were removed to the other incisions. The drain was secured with 2-0 nylon. All lap and instrument counts were correct at the end of the procedure. There were no operative complications. The patient tolerated the procedure well, was extubated and taken stable to PACU. MD ANNY Garcia/BRUCE /8:48 PM /9:36 PM
[2017-10-25 00:22] VITALS: BP 126/70; PULSE 84; RESP 18; TEMP 98.3; O2SAT 97
[2017-10-25] MEDS: NS + KCL 40 MEQ INJ 1,000 ML IV SCH ×3 (00:44→18:15)
[2017-10-25] MEDS: KETOROLAC TROMETHAMINE 30 MG/ML (IVP) VIAL IV PUSH SCH ×5 (00:44→23:40)
[2017-10-25] MEDS: PIPERACIL-TAZO 3.375 GM PREMIX 50 ML IV SCH ×4 (04:00→20:54)
[2017-10-25 04:16] VITALS: BP 115/69; PULSE 85; RESP 18; TEMP 98.4; O2SAT 97
[2017-10-25] MEDS: METOCLOPRAMIDE HCL 10 MG/2 ML VIAL IV PUSH SCH ×3 (06:12→20:54)
[2017-10-25 08:00] VITALS: BP 115/56; PULSE 83; RESP 17; TEMP 98.4; O2SAT 97
[2017-10-25] MEDS: SODIUM CHLORIDE 0.9% FLUSH 10 ML FLUSH IV FLUSH SCH ×2 (09:00→20:54)
--- NOTE | 2017-10-25 09:50 | RADRPT ---
EXAM DATE/TIME: 10/25/2017 08:59 [facility] COMPARISON: No previous studies available for comparison. INDICATIONS : Evaluate for ileus. Post op small bowel resection. MEDICAL HISTORY : Pancreatitis. Ileocolic intussusception. SURGICAL HISTORY : Small bowel resection. ENCOUNTER: Subsequent ACUITY: 2 days PAIN SCORE: 4/10 LOCATION: Abdomnen. FINDINGS: Supine view of the abdomen was performed. Gaseous distention of multiple bowel loops including dilate d small bowel loops. Postsurgical changes in the right abdomen. The osseous structures are unremarkab le. CONCLUSION: Multiple dilated bowel loops likely ileus. Patrick Tompkins MD on October 25, 2017 at 9:47 Board Certified Radiologist. This report was verified electronically.
[2017-10-25 12:00] VITALS: BP 126/70; PULSE 86; RESP 17; TEMP 98.5; O2SAT 97
[2017-10-25 15:04] LABS: AUTOMATED NEUTROPHIL # 10.3 TH/MM3 (1.8-7.7); EOSINOPHIL % 0.1 % (0.0-4.0); LYMPH % 8.7 % (9.0-44.0); LYMPHOCYTE # 1.1 TH/MM3 (1.0-4.8); MEAN CELL VOLUME 88.7 FL (80.0-100.0); MEAN CORPUSCULAR HEMOGLOBIN 30.2 PG (27.0-34.0); MEAN CORPUSCULAR HGB CONC 34.1 % (32.0-36.0); MEAN PLATELET VOLUME 8.6 FL (7.0-11.0); MONO % 11.6 % (0.0-8.0); MONOCYTE # 1.5 TH/MM3 (0-0.9); NEUT % 79.6 % (16.0-70.0); PLATELET COUNT 260 TH/MM3 (150-450); RED BLOOD COUNT 4.63 MIL/MM3 (4.50-5.90); RED CELL DISTRIBUTION WIDTH 12.9 % (11.6-17.2); WHITE BLOOD COUNT 12.9 TH/MM3 (4.0-11.0)
[2017-10-25 15:23] LABS: BICARBONATE 25.5 MEQ/L (21.0-32.0); CALCIUM 8.7 MG/DL (8.5-10.1); CREATININE 0.81 MG/DL (0.60-1.30)
--- NOTE | 2017-10-25 15:34 | HHI.PR ---
Subjective Subjective Notes vomiting overnight, large bm this afternoon, kub with ileus Objective Vitals/I&O Vital Signs Date Time Temp Pulse Resp B/P (MAP) Pulse Ox O2 Delivery O2 Flow Rate FiO2 10/25/17 12:36 16 10/25/17 12:00 98.5 86 126/70 (88) 97 10/23/17 12:30 Room Air 10/23/17 12:00 2 Labs Laboratory Tests Test 10/25/17 14:16 White Blood Count 12.9 Red Blood Count 4.63 Hemoglobin 14.0 Hematocrit 41.0 Mean Corpuscular Volume 88.7 Mean Corpuscular Hemoglobin 30.2 Mean Corpuscular Hemoglobin Concent 34.1 Red Cell Distribution Width 12.9 Platelet Count 260 Mean Platelet Volume 8.6 Neutrophils (%) (Auto) 79.6 Lymphocytes (%) (Auto) 8.7 Monocytes (%) (Auto) 11.6 Eosinophils (%) (Auto) 0.1 Basophils (%) (Auto) 0.0 Neutrophils # (Auto) 10.3 Lymphocytes # (Auto) 1.1 Monocytes # (Auto) 1.5 Eosinophils # (Auto) 0.0 Basophils # (Auto) 0.0 CBC Comment DIFF FINAL Differential Comment Blood Urea Nitrogen 15 Creatinine 0.81 Random Glucose 113 Calcium Level 8.7 Sodium Level 141 Potassium Level 3.9 Chloride Level 107 Carbon Dioxide Level 25.5 Anion Gap 9 Estimat Glomerular Filtration Rate 115 Abdomen: Other (soft mild distended eb serosang) A/P Assessment and Plan s/p right iliocectomy with primary anastomosis POD 2 PLAN npo ok for ice chips and po meds zofran/reglan oob dvt ppx eb sxn await path results recheck kub in am, ng tube if vomits, mcintyre replace if on voids Butch Quesada MD Oct 25, 2017 15:34
[2017-10-25 16:00] VITALS: BP 127/60; PULSE 83; RESP 17; TEMP 97; O2SAT 99
--- NOTE | 2017-10-25 17:29 | HHI.PR ---
Subjective Remarks The patient said that he vomited a little while ago. He was hoping he didn't have to have the NG tube replaced. He said his abdomen was still distended. Discussed with nursing. Objective Vitals Vital Signs Date Time Temp Pulse Resp B/P (MAP) Pulse Ox O2 Delivery O2 Flow Rate FiO2 10/25/17 12:36 16 10/25/17 12:00 98.5 86 17 126/70 (88) 97 10/25/17 08:00 98.4 83 17 115/56 (75) 97 10/25/17 04:16 98.4 85 18 115/69 (84) 97 10/25/17 00:22 98.3 84 18 126/70 (88) 97 10/24/17 20:10 98.9 82 18 117/62 (80) 97 I/O 10/24/17 10/24/17 10/24/17 10/25/17 10/25/17 10/25/17 07:00 15:00 23:00 07:00 15:00 23:00 Intake Total 0 ml 0 ml 0 ml Output Total 90 ml 650 ml 500 ml 540 ml Balance -90 ml -650 ml -500 ml -540 ml Intake Oral 0 ml 0 ml 0 ml Output Urine Total 550 ml 400 ml 500 ml Drainage Total 90 ml 100 ml 100 ml 40 ml # Bowel Movements 0 0 1 Result Diagram: 10/25/17 1416 10/25/17 1416 Imaging Last Impressions Abdomen X-Ray 10/25/17 0000 Signed Impressions: Service Date/Time: Wednesday, October 25, 2017 08:59 - CONCLUSION: Multiple dilated bowel loops likely ileus. Patrick Tompkins MD Objective Remarks GENERAL:Obese patient in no acute distress. SKIN: No rashes, ecchymoses or lesions. Cool and dry. HEAD: Atraumatic. Normocephalic. No temporal or scalp tenderness. EYES: No scleral icterus. No injection or drainage. ENT: Nose without bleeding, purulent drainage. NECK: Trachea midline. No JVD. CARDIOVASCULAR: Regular rate and rhythm without murmurs, gallops, or rubs. RESPIRATORY: Clear to auscultation. Breath sounds equal bilaterally. No wheezes , rales, or rhonchi. GASTROINTESTINAL: Dressed surgical wounds. Abdomen slightly distended. MUSCULOSKELETAL: Extremities without clubbing, cyanosis, or edema. NEUROLOGICAL: Awake and alert. Motor and sensory grossly within normal limits. Normal speech. Medications and IVs Current Medications Medications (Trade) Dose Ordered Sig/Svetlana Route Start Time Stop Time Status Last Admin (NS Flush) 2 ml UNSCH PRN IV FLUSH 10/22/17 23:00 (NS Flush) 2 ml BID IV FLUSH 10/23/17 09:00 10/23/17 23:38 (Zofran Inj) 4 mg Q6H PRN IVP 10/22/17 23:00 10/24/17 17:59 (Narcan Inj) 0.4 mg UNSCH PRN IV PUSH 10/22/17 23:00 Potassium Chloride/Sodium Chloride 1,000 ml @ 125 mls/hr Q8H IV 10/23/17 02:15 10/25/17 11:36 (Compazine Inj) 10 mg Q6H PRN IV PUSH 10/23/17 02:15 Piperacillin Sod/ Tazobactam Sod 50 ml @ 100 mls/hr Q6H IV 10/23/17 04:00 10/25/17 15:27 Lactated Ringer's 1,000 ml @ 30 mls/hr Q24H PRN IV 10/23/17 03:45 10/26/17 03:44 (Betadine 5% Antisepsis Kit) 1 applic POWERPLANT OPERATOR PRN EACH NARE 10/23/17 03:45 10/26/17 03:44 (Chlorhexidine 2% Cloth) 3 pack POWERPLANT OPERATOR PRN TOPICAL 10/23/17 03:45 10/26/17 03:44 (Toradol Inj) 30 mg Q6HR IV PUSH 10/24/17 12:00 10/25/17 11:36 (Reglan Inj) 10 mg Q8HR IV PUSH 10/24/17 22:00 10/25/17 15:27 A/P Problem List: (1) Ileocolic intussusception ICD Code: K56.1 - Intussusception (2) Partial small bowel obstruction ICD Code: K56.600 - Partial intestinal obstruction, unspecified as to cause Assessment and Plan Ileocolic Intussusception Partial SBO, on Pain medicine, IV hydration, s/p right iliocectomy with primary anastomosis. - Nothing by mouth per surgery. - encourage ambulation. - awaiting results of Pathology. - continue empiric antibiotics Zosyn 3.375 grams every 6 hours. - NG tube placement if nausea persists. DVT prophylaxis - SCDs/TEDs - surgery pending Discharge Planning Awaiting surgical clearance Sourav Bronson DO Oct 25, 2017 17:29
[2017-10-25 20:25] VITALS: BP 117/57; PULSE 85; RESP 18; TEMP 97; O2SAT 97
[2017-10-26 01:06] VITALS: BP 117/62; PULSE 80; RESP 18; TEMP 98; O2SAT 95
[2017-10-26] MEDS: NS + KCL 40 MEQ INJ 1,000 ML IV SCH ×3 (02:15→22:27)
[2017-10-26] MEDS: PIPERACIL-TAZO 3.375 GM PREMIX 50 ML IV SCH ×4 (04:51→22:07)
--- NOTE | 2017-10-26 06:40 | RADRPT ---
EXAM DATE/TIME: 10/26/2017 05:53 [facility] COMPARISON: ABDOMEN KUB ONLY, October 25, 2017, 8:59. INDICATIONS : Evaluate for ileus. Post op small bowel resection. MEDICAL HISTORY : Pancreatitis. Ileocolic intussusception. SURGICAL HISTORY : Small bowel resection. ENCOUNTER: Subsequent ACUITY: 4 - 6 days PAIN SCORE: 3/10 LOCATION: abdomen. FINDINGS: Supine view of the abdomen was performed. The abdominal bowel gas pattern demonstrates gaseous diste ntion of small bowel which is stable to slightly improved from October 25. No free air. Drain present on the right. CONCLUSION: 1. Gaseous distention of bowel which is stable to slightly improved from October 25. Anthony Reese MD on October 26, 2017 at 6:36 Board Certified Radiologist. This report was verified electronically.
[2017-10-26] MEDS: METOCLOPRAMIDE HCL 10 MG/2 ML VIAL IV PUSH SCH ×3 (07:14→22:07)
[2017-10-26] MEDS: KETOROLAC TROMETHAMINE 30 MG/ML (IVP) VIAL IV PUSH SCH ×4 (07:14→22:06)
[2017-10-26 08:00] VITALS: BP 113/64; PULSE 77; RESP 20; TEMP 96.8; O2SAT 97
[2017-10-26] MEDS: SODIUM CHLORIDE 0.9% FLUSH 10 ML FLUSH IV FLUSH SCH ×2 (09:03→21:00)
[2017-10-26 12:00] VITALS: BP 119/68; PULSE 80; RESP 20; TEMP 96.6; O2SAT 96
[2017-10-26] MEDS ORDERED: ACETAMINOPHEN/HYDROcodone 325 MG/5 MG TAB PO PRN ×2 (12:00)
--- NOTE | 2017-10-26 13:46 | HHI.PR ---
Subjective Subjective Notes Resting in bed Has been ambulating in hallways Objective Vitals/I&O Vital Signs Date Time Temp Pulse Resp B/P (MAP) Pulse Ox O2 Delivery O2 Flow Rate FiO2 10/26/17 08:00 96.8 77 20 113/64 (80) 97 10/23/17 12:30 Room Air 10/23/17 12:00 2 Labs Laboratory Tests Test 10/25/17 14:16 White Blood Count 12.9 Red Blood Count 4.63 Hemoglobin 14.0 Hematocrit 41.0 Mean Corpuscular Volume 88.7 Mean Corpuscular Hemoglobin 30.2 Mean Corpuscular Hemoglobin Concent 34.1 Red Cell Distribution Width 12.9 Platelet Count 260 Mean Platelet Volume 8.6 Neutrophils (%) (Auto) 79.6 Lymphocytes (%) (Auto) 8.7 Monocytes (%) (Auto) 11.6 Eosinophils (%) (Auto) 0.1 Basophils (%) (Auto) 0.0 Neutrophils # (Auto) 10.3 Lymphocytes # (Auto) 1.1 Monocytes # (Auto) 1.5 Eosinophils # (Auto) 0.0 Basophils # (Auto) 0.0 CBC Comment DIFF FINAL Differential Comment Blood Urea Nitrogen 15 Creatinine 0.81 Random Glucose 113 Calcium Level 8.7 Sodium Level 141 Potassium Level 3.9 Chloride Level 107 Carbon Dioxide Level 25.5 Anion Gap 9 Estimat Glomerular Filtration Rate 115 Cardiovascular: Regular Lungs: Clear Abdomen: Other (inc c/d/i; minimal tenderness; soft ) Extremities: No edema A/P Assessment and Plan 27 year old female POD3 right iliocectomy with primary anastomosis -Start clear liquids -Decrease IVF -Pathology reviewed with patient---polyp -OOB and mobilize Roma Botello Oct 26, 2017 13:46
[2017-10-26 16:00] VITALS: BP 123/60; PULSE 86; RESP 20; TEMP 99.4; O2SAT 98
--- NOTE | 2017-10-26 16:41 | HHI.PR ---
Subjective Remarks The patient's mother was at the bedside and their questions were answered. The patient felt a lot better today. He was tolerating some liquids. His pain was much improved and he has been ambulating. Objective Vitals Vital Signs Date Time Temp Pulse Resp B/P (MAP) Pulse Ox O2 Delivery O2 Flow Rate FiO2 10/26/17 12:00 96.6 80 20 119/68 (85) 96 10/26/17 08:00 96.8 77 20 113/64 (80) 97 10/26/17 01:06 98.0 80 18 117/62 (80) 95 10/25/17 20:25 97.0 85 18 117/57 (77) 97 I/O 10/25/17 10/25/17 10/25/17 10/26/17 10/26/17 10/26/17 07:00 15:00 23:00 07:00 15:00 23:00 Intake Total 0 ml 0 ml 50 ml Output Total 540 ml 75 ml Balance -540 ml 0 ml 50 ml -75 ml Intake Oral 0 ml 0 ml IV Total 50 ml Output Urine Total 500 ml Drainage Total 40 ml 75 ml # Voids 0 2 1 # Bowel Movements 0 1 2 Result Diagram: 10/25/17 1416 10/25/17 1416 Imaging Last Impressions Abdomen X-Ray 10/26/17 0500 Signed Impressions: Service Date/Time: October 05:53 - CONCLUSION: 1. Gaseous distention of bowel which is stable to slightly improved from October 25. Anthony Reese MD Objective Remarks GENERAL:Obese patient in no acute distress. SKIN: No rashes, ecchymoses or lesions. Cool and dry. HEAD: Atraumatic. Normocephalic. No temporal or scalp tenderness. EYES: No scleral icterus. No injection or drainage. ENT: Nose without bleeding, purulent drainage. NECK: Trachea midline. No JVD. CARDIOVASCULAR: Regular rate and rhythm without murmurs, gallops, or rubs. RESPIRATORY: Clear to auscultation. Breath sounds equal bilaterally. No wheezes , rales, or rhonchi. GASTROINTESTINAL: Dressed surgical wounds. Abdomen soft and nontender. MUSCULOSKELETAL: Extremities without clubbing, cyanosis, or edema. NEUROLOGICAL: Awake and alert. Motor and sensory grossly within normal limits. Normal speech. PSYCH: Mood and affect appropriate. Medications and IVs Current Medications Medications (Trade) Dose Ordered Sig/Svetlana Route Start Time Stop Time Status Last Admin (NS Flush) 2 ml UNSCH PRN IV FLUSH 10/22/17 23:00 (NS Flush) 2 ml BID IV FLUSH 10/23/17 09:00 10/26/17 09:03 (Zofran Inj) 4 mg Q6H PRN IVP 10/22/17 23:00 10/24/17 17:59 (Narcan Inj) 0.4 mg UNSCH PRN IV PUSH 10/22/17 23:00 Potassium Chloride/Sodium Chloride 1,000 ml @ 75 mls/hr [id number] IV 10/23/17 02:15 10/26/17 09:03 (Compazine Inj) 10 mg Q6H PRN IV PUSH 10/23/17 02:15 Piperacillin Sod/ Tazobactam Sod 50 ml @ 100 mls/hr Q6H IV 10/23/17 04:00 10/26/17 15:18 (Toradol Inj) 30 mg Q6HR IV PUSH 10/24/17 12:00 10/26/17 07:14 (Reglan Inj) 10 mg Q8HR IV PUSH 10/24/17 22:00 10/26/17 15:18 (Dickens 5-325 Mg) 1 tab Q4H PRN PO 10/26/17 12:00 (Dickens 5-325 Mg) 2 tab Q4H PRN PO 10/26/17 12:00 A/P Problem List: (1) Ileocolic intussusception ICD Code: K56.1 - Intussusception (2) Partial small bowel obstruction ICD Code: K56.600 - Partial intestinal obstruction, unspecified as to cause Assessment and Plan Ileocolic Intussusception Partial SBO and intussusception thought to be secondary to mass on CT. S/p right ileocolectomy with primary anastomosis. Pathology revealed a polyp. - Clear liquid diet per surgery. - encourage ambulation. - continue empiric antibiotics Zosyn 3.375 grams every 6 hours. - pain control as needed. Leukocytosis Likely secondary to above. - Trend CBC. DVT prophylaxis - SCDs/TEDs Discharge Planning Awaiting surgical clearance Sourav Bronson DO Oct 26, 2017 16:41
[2017-10-26 20:20] VITALS: BP 114/62; PULSE 77; RESP 19; TEMP 98.2; O2SAT 97
[2017-10-26 23:55] VITALS: BP 111/67; PULSE 85; RESP 18; TEMP 97.9; O2SAT 97
[2017-10-27] MEDS: KETOROLAC TROMETHAMINE 30 MG/ML (IVP) VIAL IV PUSH SCH ×3 (05:21→17:31)
[2017-10-27] MEDS: PIPERACIL-TAZO 3.375 GM PREMIX 50 ML IV SCH ×2 (05:21→09:30)
[2017-10-27] MEDS: METOCLOPRAMIDE HCL 10 MG/2 ML VIAL IV PUSH SCH ×2 (05:21→12:52)
[2017-10-27 08:00] VITALS: BP 120/72; PULSE 84; RESP 16; TEMP 96.9; O2SAT 97
[2017-10-27] MEDS: SODIUM CHLORIDE 0.9% FLUSH 10 ML FLUSH IV FLUSH SCH (09:00)
--- NOTE | 2017-10-27 11:06 | HHI.PR ---
Subjective Subjective Notes Walking in hallways Feeling good Feels hungry Objective Vitals/I&O Vital Signs Date Time Temp Pulse Resp B/P (MAP) Pulse Ox O2 Delivery O2 Flow Rate FiO2 10/27/17 08:00 96.9 84 16 120/72 (88) 97 10/23/17 12:30 Room Air 10/23/17 12:00 2 Cardiovascular: Regular Lungs: Clear Abdomen: Other (lap sites c/d/i; HANNAH with serous fluid; very minimal tenderness to palpation ) Extremities: No edema A/P Assessment and Plan 27 year old female POD4 right iliocectomy with primary anastomosis -Start soft diet -DC IVF -Pathology reviewed with patient---polyp -OOB and mobilize -Home this afternoon vs tomorrow Roma Botello Oct 27, 2017 11:06
[2017-10-27 12:00] VITALS: BP 119/63; PULSE 98; RESP 16; TEMP 98.9; O2SAT 99
--- NOTE | 2017-10-27 16:27 | HHI.DCPOC ---
Discharge Care Plan Diagnosis: (1) Partial small bowel obstruction (2) Ileocolic intussusception Goals to Promote Your Health * To prevent worsening of your condition and complications * To maintain your health at the optimal level Directions to Meet Your Goals Take your medications as prescribed Follow your dietary instruction Follow activity as directed Keep your appointments as scheduled Take your immunizations and boosters as scheduled If your symptoms worsen call your PCP, if no PCP go to Urgent Care Center or Emergency Room Smoking is Dangerous to Your Health. Avoid second hand smoke Call the 24-hour hour crisis hotline for domestic abuse at Sourav Bronson DO Oct 27, 2017 16:27
--- NOTE | 2017-10-27 16:35 | HHI.DS ---
Discharge Summary Admission Date Oct 23, 2017 at 02:11 Discharge Date: Oct 27, 2017 Admitting Diagnosis Ileocolic Intussusception with partial SBO . (1) Ileocolic intussusception ICD Code: K56.1 - Intussusception Diagnosis: Principal (2) Partial small bowel obstruction ICD Code: K56.600 - Partial intestinal obstruction, unspecified as to cause (3) Leukocytosis ICD Code: D72.829 - Elevated white blood cell count, unspecified Procedures Right ileocolectomy with primary anastomosis Brief History - From Admission Mr. Crawley is a 27 year-old male with a history of pancreatitis who presented to the ER on 10/22/17 in [place] complaining of severe abdominal pain. Abdominal/Pelvic CT scan showed ileocolic intussusception with partial SBO. The patient was transferred to [facility] for surgical intervention. The patient is seen in his hospital room. He reports that his symptoms first started after breakfast this morning with intermittent abdominal pain - left upper quadrant - and the symptoms progressed throughout the day until they became severe and constant and were accompanied by severe nausea and vomiting. Pain temporarily relieved with IV Dilaudid. CBC/BMP: 10/25/17 1416 10/25/17 1416 Significant Findings Laboratory Tests Test 10/25/17 14:16 White Blood Count 12.9 TH/MM3 (4.0-11.0) Neutrophils (%) (Auto) 79.6 % (16.0-70.0) Lymphocytes (%) (Auto) 8.7 % (9.0-44.0) Monocytes (%) (Auto) 11.6 % (0.0-8.0) Neutrophils # (Auto) 10.3 TH/MM3 (1.8-7.7) Monocytes # (Auto) 1.5 TH/MM3 (0-0.9) Random Glucose 113 MG/DL (74-106) Imaging Last Impressions Abdomen X-Ray 10/26/17 0500 Signed Impressions: Service Date/Time: October 05:53 - CONCLUSION: 1. Gaseous distention of bowel which is stable to slightly improved from October 25. Anthony Reese MD PE at Discharge GENERAL:Obese patient in no acute distress. SKIN: No rashes, ecchymoses or lesions. Cool and dry. HEAD: Atraumatic. Normocephalic. No temporal or scalp tenderness. EYES: No scleral icterus. No injection or drainage. ENT: Nose without bleeding, purulent drainage. NECK: Trachea midline. No JVD. CARDIOVASCULAR: Regular rate and rhythm without murmurs, gallops, or rubs. RESPIRATORY: Clear to auscultation. Breath sounds equal bilaterally. No wheezes , rales, or rhonchi. GASTROINTESTINAL: Dressed surgical wounds. Abdomen soft and nontender. MUSCULOSKELETAL: Extremities without clubbing, cyanosis, or edema. NEUROLOGICAL: Awake and alert. Motor and sensory grossly within normal limits. Normal speech. PSYCH: Mood and affect appropriate. Pt update on day of discharge The pt was feeling well and wanted to go home. He has been tolerating a diet and ambulating. He has been having bowel movements. Discussed with nursing. Hospital Course Ileocolic Intussusception Partial small bowel obstruction and intussusception thought to be secondary to a mass was noted on CT scan. He was started on Zosyn. General surgery was consulted. S/p right ileocolectomy with primary anastomosis. Pathology revealed a hamartomatous polyp. He was advanced to a clear liquid diet and then a soft food diet per surgery. He received pain control as needed. Antibiotics were discontinued. He will follow up with surgery as an outpt. Leukocytosis He completed five days of Zosyn. He has been afebrile. He will have a repeat CBC in 3-5 days and will follow up with surgery. Pt Condition on Discharge: Good Discharge Disposition: Discharge Home Discharge Time: <= 30 minutes Discharge Instructions DIET: Follow Instructions for: Low Residue Diet Activities you can perform: Weight Bearing as Asad Follow up Referrals: PCP Follow-up - 1 Week Surgical - 11/06/17 with Butch Quesada MD Appt set for Nov 06 at 4:20PM New Orders: CBC WITH DIFF - 3-5 Days Medication Profile: Unable to Obtain Active Prescriptions or Reported Meds Sourav Bronson DO Oct 27, 2017 16:35
[2017-10-28] MEDS ORDERED: NO HOME MEDICATIONS (16:51)
== END 2017-10-27 20:30 | disposition home or self-care (01) | DRG 331 ==
LOC: PHEDDLT 10-23 02:01 → N06B 10-23 02:11
PROVIDERS: ADMIT Hospitalist; ATTEND Hospitalist
PROC: 0DTH4ZZ Resection of Cecum, Percutaneous Endoscopic Approach (ICD-10-PCS; principal; 2017-10-23 07:32)
DX: K56.1 Intussusception (principal); E87.6 Hypokalemia; K63.89 Other specified diseases of intestine; D72.829 Elevated white blood cell count, unspecified; K56.600 Partial intestinal obstruction, unspecified as to cause
CPT/HCPCS: 74018; 74177; 80048; 80053; 83690; 83735; 85007; 85025; 85027; 88307; 93005; 96361; 96374; 96375; C9113; J0131; J0690; J0780; J1170; J1885; J2250; J2405; J2543; J2765; J3010; J3480; J7030; Q9967

== ENCOUNTER 2017-10-28 16:08 | Emergency (ER) | payer MEDICAID, OTHER ==
[~2017-10-28] VITALS: Ht 177.8 cm; Wt 103.0 kg
[2017-10-28 16:10] VITALS: BP 142/84; PULSE 83; RESP 12; TEMP 98.1; O2SAT 99
--- NOTE | 2017-10-28 16:44 | PD ---
HPI Chief Complaint: Fever Time Seen by Provider: 16:26 Travel History International Travel<30 days: No Contact w/Intl Traveler<30days: No Traveled to known affect area: No History of Present Illness HPI 27-year-old man who presents to the emergency department complaining of fever and abdominal pain. 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 Quesada on October 24. He was discharged yesterday. He is doing well. He says some intermittent abdominal pain and cramping, usually improved with bowel movement or flatulence. No nausea or vomiting. No UTI symptoms. No cough cold symptoms. Today started having fever of 101.9 at about 11 AM, recurring a little bit later in the afternoon despite some treatment with acetaminophen and ibuprofen at home. They spoke with Dr. Quesada referred him to the emergency department. Abdominal pains been about the same since discharge. No significant changes. Bowel moods continue to be a little bit loose, infrequent, but again no change since being in the hospital. History Past Medical History Narrative Medical Recent bowel resection Social History Alcohol Use: No Tobacco Use: No Allergies-Medications (Allergen,Severity, Reaction): Coded Allergies: pseudoephedrine (Verified Allergy, Severe, Rash, 10/28/17) Reported Meds & Prescriptions Reported Meds & Active Scripts Active Reported [No Home Medications] Review of Systems Except as stated in HPI: all other systems reviewed are Neg Physical Exam Narrative GENERAL: Well-appearing 27-year-old man, no acute distress. SKIN: Focused skin assessment warm/dry. HEAD: Atraumatic. Normocephalic. EYES: Pupils equal and round. No scleral icterus. No injection or drainage. ENT: No nasal bleeding or discharge. Mucous membranes pink and moist. NECK: Trachea midline. No JVD. CARDIOVASCULAR: Regular rate and rhythm. No murmur appreciated. RESPIRATORY: No accessory muscle use. Clear to auscultation. Breath sounds equal bilaterally. GASTROINTESTINAL: Abdomen soft. Nondistended. The some minimal tenderness. He has 3 well-healing surgical incisions on the left side of his abdomen. On the most lateral incision there is a little bit of some palpable induration below it that may suggest hematoma or fluid collection. There is no erythema redness or significant tenderness in the area to suggest infection. There is a bandage on the right side of his abdomen from where a drain was removed and still leaking a small amount of serous fluid. Again no erythema redness or evidence of infection. MUSCULOSKELETAL: No obvious deformities. No clubbing. No cyanosis. No edema. NEUROLOGICAL: Awake and alert. No obvious cranial nerve deficits. Motor grossly within normal limits. Normal speech. PSYCHIATRIC: Appropriate mood and affect; insight and judgment normal. Data Data Last Documented VS Vital Signs Date Time Temp Pulse Resp B/P (MAP) Pulse Ox O2 Delivery O2 Flow Rate FiO2 10/28/17 16:21 Room Air 10/28/17 16:10 98.1 83 12 142/84 (103) 99 Orders Orders Complete Blood Count With Diff (10/28/17 16:39) Comprehensive Metabolic Panel (10/28/17 16:39) Iv Access Insert/Monitor (10/28/17 16:39) Urinalysis - C+S If Indicated (10/28/17 16:39) Influenzae A/B Antigen (10/28/17 16:56) Labs Laboratory Tests Test 10/28/17 16:50 White Blood Count 8.0 TH/MM3 Red Blood Count 4.67 MIL/MM3 Hemoglobin 14.5 GM/DL Hematocrit 41.2 % Mean Corpuscular Volume 88.2 FL Mean Corpuscular Hemoglobin 31.1 PG Mean Corpuscular Hemoglobin Concent 35.2 % Red Cell Distribution Width 12.5 % Platelet Count 302 TH/MM3 Mean Platelet Volume 7.9 FL Neutrophils (%) (Auto) 57.7 % Lymphocytes (%) (Auto) 21.7 % Monocytes (%) (Auto) 18.0 % Eosinophils (%) (Auto) 2.3 % Basophils (%) (Auto) 0.3 % Neutrophils # (Auto) 4.6 TH/MM3 Lymphocytes # (Auto) 1.7 TH/MM3 Monocytes # (Auto) 1.4 TH/MM3 Eosinophils # (Auto) 0.2 TH/MM3 Basophils # (Auto) 0.0 TH/MM3 CBC Comment DIFF FINAL Differential Comment Urine Color YELLOW Urine Turbidity CLEAR Urine pH 5.5 Urine Specific [place] 1.026 Urine Protein 30 mg/dL Urine Glucose (UA) NEG mg/dL Urine Ketones NEG mg/dL Urine Occult Blood SMALL Urine Nitrite NEG Urine Bilirubin NEG Urine Urobilinogen LESS THAN 2.0 MG/DL Urine Leukocyte Esterase NEG Urine RBC 14 /hpf Urine WBC 2 /hpf Urine Squamous Epithelial Cells <1 /hpf Urine Mucus MANY /lpf Microscopic Urinalysis Comment CULT NOT INDICATED Blood Urea Nitrogen 12 MG/DL Creatinine 0.96 MG/DL Random Glucose 97 MG/DL Total Protein 8.7 GM/DL Albumin 3.7 GM/DL Calcium Level 8.7 MG/DL Alkaline Phosphatase 70 U/L Aspartate Amino Transf (AST/SGOT) 32 U/L Alanine Aminotransferase (ALT/SGPT) 29 U/L Total Bilirubin 0.9 MG/DL Sodium Level 136 MEQ/L Potassium Level 4.0 MEQ/L Chloride Level 103 MEQ/L Carbon Dioxide Level 25.3 MEQ/L Anion Gap 8 MEQ/L Estimat Glomerular Filtration Rate 95 ML/MIN [facility] Medical Decision Making Medical Screen Exam Complete: Yes Emergency Medical Condition: Yes Interpretation(s) LABS: CBC unremarkable. CMP is unremarkable UA with m trace hematuria. Differential Diagnosis Infection, abscess, URI, UTI, PE, atelectasis, other Narrative Course Medical decision making INITIAL calls a 27-year-old man, recent laparoscopic bowel resection with Dr. Quesada, presents for fever. He has some mild to moderate abdominal pain that is unchanged since being in the hospital. He overall looks well. There is no evidence of skin or soft tissue/surgical site infection. Will check labs, discussed with Dr. Quesada, possible imaging. Spoke with Dr. Srivastava. Fever without significant abdominal pain, abdominal tenderness, or other evidence of infection. White counts normal. Patient looks well. Recommend outpatient follow-up. Defer imaging at this time. Diagnosis Primary Impression: Fever Additional Instructions: Follow-up with your surgeon on Monday. Return to the emergency department for any abdominal pain, nausea or vomiting, or any other new or worsening symptoms. Med/Other Pt SpecificInfo: No Change to Meds Disposition: 01 DISCHARGE HOME Condition: Stable Darren York MD Oct 28, 2017 16:44
[2017-10-28] MEDS ORDERED: NO HOME MEDICATIONS (16:51)
[2017-10-28 16:56] LABS: AUTOMATED NEUTROPHIL # 4.6 TH/MM3 (1.8-7.7); BASOPHIL % 0.3 % (0.0-2.0); EOSINOPHIL # 0.2 TH/MM3 (0-0.4); EOSINOPHIL % 2.3 % (0.0-4.0); HEMATOCRIT 41.2 % (39.0-51.0); HEMOGLOBIN 14.5 GM/DL (13.0-17.0); LYMPH % 21.7 % (9.0-44.0); LYMPHOCYTE # 1.7 TH/MM3 (1.0-4.8); MEAN CELL VOLUME 88.2 FL (80.0-100.0); MEAN CORPUSCULAR HEMOGLOBIN 31.1 PG (27.0-34.0); MEAN CORPUSCULAR HGB CONC 35.2 % (32.0-36.0); MEAN PLATELET VOLUME 7.9 FL (7.0-11.0); MONOCYTE # 1.4 TH/MM3 (0-0.9); NEUT % 57.7 % (16.0-70.0); PLATELET COUNT 302 TH/MM3 (150-450); RED BLOOD COUNT 4.67 MIL/MM3 (4.50-5.90); RED CELL DISTRIBUTION WIDTH 12.5 % (11.6-17.2)
[2017-10-28 17:13] LABS: ALBUMIN 3.7 GM/DL (3.4-5.0); ALT (GPT) 29 U/L (12-78); AST (GOT) 32 U/L (15-37); BICARBONATE 25.3 MEQ/L (21.0-32.0); BLOOD UREA NITROGEN 12 MG/DL (7-18); CALCIUM 8.7 MG/DL (8.5-10.1); CHLORIDE 103 MEQ/L (98-107); CREATININE 0.96 MG/DL (0.60-1.30); GLOMERULAR FILTRATION RATE 95 ML/MIN (>89); GLUCOSE,RANDOM 97 MG/DL (74-106); SODIUM (NA) 136 MEQ/L (136-145)
[2017-10-28 17:15] LABS: ALKALINE PHOSPHATASE 70 U/L (45-117); TOTAL BILIRUBIN ADULT 0.9 MG/DL (0.2-1.0); TOTAL PROTEIN 8.7 GM/DL (6.4-8.2)
[2017-10-28 17:16] LABS: BILIRUBIN, URINE NEG (NEG); BLOOD, URINE SMALL (NEG); GLUCOSE,URINE NEG (NEG); KETONE, URINE NEG (NEG); MUCUS URINE MANY /lpf (OCC); NITRITE,URINE NEG (NEG); PH, URINE 5.5 (5.0-8.5); SQUAMOUS EPITHELIAL CELL URINE <1 /hpf (0-5); URINE COLOR YELLOW (YELLW/STRAW); URINE LEUKOCYTE ESTERASE NEG (NEG)
== END 2017-10-28 18:53 | disposition home or self-care (01) ==
LOC: NEPC 16:08
DX: R50.9 Fever, unspecified (principal); Z90.49 Acquired absence of other specified parts of digestive tract; Z98.0 Intestinal bypass and anastomosis status
CPT/HCPCS: 80053; 81001; 85025; 87804; 99283